=== PATIENT | female | born 1980 | race Asian ===

== ENCOUNTER 2017-07-01 12:04 | Emergency (ER) | payer SELFPAY ==
[2017-07-01 12:35] LABS: ADD MAN DIFF? NO
[2017-07-01] MEDS: IPRATRPIUM/ALBUTEROL 0.5/2.5MG 3 ML NEBU. NEB (12:37)
[2017-07-01 12:41] LABS: BASO % 0 % (0-3); EOS # 0.1 x10^3/uL (0.0-0.7); EOS % 1 % (0-3); HEMATOCRIT 35.3 % (36.0-47.0); HEMOGLOBIN 11.4 g/dL (12.0-15.5); LYMPH # 2.2 x10^3/uL (1.0-4.8); LYMPH % 21 % (24-48); MEAN CORPUSCULAR HEMOGLOBIN 23 pg (25-35); MEAN CORPUSCULAR HGB CONC 32 g/dL (31-37); MEAN CORPUSCULAR VOLUME 71 fL (79-100); MONO # 0.9 x10^3/uL (0.0-1.1); MONO % 8 % (0-9); NEUT # 7.5 x10^3uL (1.8-7.7); NEUT % 70 % (31-73); PLATELET COUNT 383 x10^3/uL (140-400); RED BLOOD COUNT 4.96 x10^6/uL (3.50-5.40); RED CELL DISTRIBUTION WIDTH 17.1 % (11.5-14.5); WHITE BLOOD COUNT 10.7 x10^3/uL (4.0-11.0)
[2017-07-01 12:55] LABS: ALBUMIN/GLOBULIN RATIO 0.6 (1.0-1.7); ALK PHOS 106 U/L (46-116); ALT (SGPT) 11 U/L (14-59); ANION GAP 8 (6-14); AST (SGOT) 16 U/L (15-37); BLOOD UREA NITROGEN 11 mg/dL (7-20); BUN/CREATININE RATIO 18 (6-20); CALCIUM 8.6 mg/dL (8.5-10.1); CARBON DIOXIDE 29 mmol/L (21-32); CHLORIDE 103 mmol/L (98-107); CREATININE 0.6 mg/dL (0.6-1.0); GFR 112.5; GLUCOSE 89 mg/dL (70-99); SODIUM 140 mmol/L (136-145); TOTAL BILIRUBIN 0.3 mg/dL (0.2-1.0); TOTAL PROTEIN 8.2 g/dL (6.4-8.2)
[2017-07-01 12:56] LABS: POTASSIUM 2.8 mmol/L (3.5-5.1)
[2017-07-01 12:57] LABS: TROPONINI < 0.017 ng/mL (0.000-0.055)
[2017-07-01 13:00] LABS: NT-PRO BNP 210 pg/mL (0-124)
[2017-07-01] MEDS: IV NORMAL SALINE 1000ML BAG 1,000 ML IV (13:09)
[2017-07-01 13:15] LABS: ANISOCYTOSIS SLIGHT; HYPOCHROMIA MOD; INFLUENZA A PATIENT NEGATIVE (NEGATIVE); INFLUENZA B PATIENT NEGATIVE (NEGATIVE); OBC FLU VALID; PLT ESTIMATE ADEQUATE (ADEQUATE); POIKILOCYTOSIS SLIGHT
[2017-07-01 13:16] LABS: MICROCYTOSIS MOD
[2017-07-01] MEDS: DEXAMETHASONE SOD PHOS 20 MG/5 ML VIAL. IV (13:16)
[2017-07-01] MEDS ORDERED: IOHEXOL 300 MG/ML 100ML VIAL. (13:25)
[2017-07-01 13:57] LABS: NEGATIVE OBC STREP NEG; POSITIVE OBC STREP POS
[2017-07-01] MEDS: IOHEXOL 300 MG/ML 100ML VIAL. IV (13:59)
[2017-07-01] MEDS ORDERED: CONTRAST GIVEN MC (14:00)
[2017-07-01] MEDS: POTASSIUM CL 40MEQ D5-0.45NACL 1,000 ML IV (15:30)
[2017-07-01] MEDS: AZITHRMYCN 500MG IVPB FOR OMNI 250 ML IV (15:45)
== END 2017-07-01 16:05 | disposition short-term general hospital (02) ==
LOC: ER 12:04
DX: J40 Bronchitis, not specified as acute or chronic (principal); J15.8 Pneumonia due to other specified bacteria
CPT/HCPCS: 36415; 70360; 70491; 71046; 80053; 83880; 84484; 84702; 85025; 87070; 87804; 87804-59; 87880; 93005; 94640; 96361; 96365; 96368; 96375; 99285-25; J0456; J0690; J1100; J7030; J7042; J7620; Q9967